=== PATIENT | male | born 1990 | race Caucasian/White ===

== ENCOUNTER 2016-11-13 21:37 | Emergency (ER) | payer SELFPAY ==
[2016-11-13 21:59] VITALS: RESP 18
[2016-11-13] MEDS ORDERED: Sodium Chloride 0.9% 1,000 ML IV STA (22:15)
[2016-11-13] MEDS ORDERED: Iohexol 240 (50 ml) PO ONE (22:15)
--- NOTE | 2016-11-13 22:20 | ED PDOC ---
HPI: Abdomen Time Seen by Provider: 11/13/16 22:05 Chief Complaint (Nursing): Abdominal Pain Chief Complaint (Provider): abdominal pain History Per: Patient History/Exam Limitations: no limitations Onset/Duration Of Symptoms: Hrs (10) Current Symptoms Are (Timing): Still Present Location Of Pain/Discomfort: RLQ Quality Of Discomfort: "Pain" Associated Symptoms: Nausea, Loss Of Appetite Additional History Per: Patient Additional Complaint(s): 26 y/o male presents with right lower abdominal pain x 10 hours. Patient states pain was improved with over the counter analgesic, then returned as of a few hours ago and has not gone away since. Associated nausea, decreased appetite. Denies fever, vomiting, chest pain, shortness of breath, palpitations , changes in bowel movements, urinary symptoms. Past Medical History Reviewed: Historical Data, Nursing Documentation, Vital Signs Vital Signs: Last Vital Signs Temp 98.8 F 11/13/16 21:57 Pulse 92 H 11/13/16 21:57 Resp 18 11/13/16 21:57 BP 145/86 11/13/16 21:57 Pulse Ox 99 11/14/16 02:42 - Medical History PMH: No Chronic Diseases - Surgical History Surgical History: No Surg Hx - Family History Family History: States: No Known Family Hx - Home Medications Home Medications: Ambulatory Orders Medication Instructions Recorded Ciprofloxacin HCl [Cipro] 500 mg PO BID #9 tab 11/14/16 Ibuprofen [Motrin Tab] 1 tab PO Q6 PRN #20 tab 11/14/16 - Allergies Allergies/Adverse Reactions: Allergies Allergy/AdvReac Type Severity Reaction Status Date / Time egg Allergy PAIN Verified 11/13/16 21:56 kiwi Allergy ANAPHYLAXIS Verified 11/13/16 21:56 anchovies Allergy PAIN Uncoded 11/13/16 21:56 Review of Systems ROS Statement: Except As Marked, All Systems Reviewed And Found Negative Gastrointestinal: Positive for: Abdominal Pain Physical Exam - Reviewed Nursing Documentation Reviewed: Yes Vital Signs Reviewed: Yes - Physical Exam Appears: Positive for: Well, Non-toxic, Uncomfortable Head Exam: Positive for: ATRAUMATIC, NORMAL INSPECTION, NORMOCEPHALIC Skin: Positive for: Normal Color Eye Exam: Positive for: Normal appearance ENT: Positive for: Normal ENT Inspection Cardiovascular/Chest: Positive for: Regular Rate, Rhythm Respiratory: Positive for: Normal Breath Sounds Gastrointestinal/Abdominal: Positive for: Bowel Sounds, Soft, Other (+obturator , +Psoa (right)). Negative for: Tenderness, Distended, Guarding, Rebound Extremity: Positive for: Normal ROM Neurologic/Psych: Positive for: Alert, Oriented - Laboratory Results Result Diagrams: 11/13/16 23:09 11/13/16 23:09 - ECG O2 Sat by Pulse Oximetry: 99 - Progress ED Course And Treament: labs, CT abd/pelvis, urine, IV fluids, IV toradol, IV zofran EXAM: CT Abdomen and Pelvis With Intravenous Contrast EXAM DATE/TIME: 11/13/2016 10:15 PM CLINICAL HISTORY: 26 years old, male; Pain; Abdominal pain; Localized; Right lower quadrant (rlq) ; Additional info: Rlq pain TECHNIQUE: Axial computed tomography images of the abdomen and pelvis with intravenous contrast. All CT scans at this facility use one or more dose reduction techniques, viz.: automated exposure control; ma/kV adjustment per patient size (including targeted exams where dose is matched to indication; i.e. head); or iterative reconstruction technique. Coronal and sagittal reformatted images were created and reviewed. CONTRAST: 90 mL of [id number] administered intravenously. COMPARISON: No relevant prior studies available. FINDINGS: Lower thorax: No acute findings. ABDOMEN: Liver: Unremarkable. No mass. Gallbladder and bile ducts: Unremarkable. No calcified stones. No ductal dilation. Pancreas: Unremarkable. No mass. No ductal dilation. Spleen: Unremarkable. No splenomegaly. Adrenals: Unremarkable. No mass. Kidneys and ureters: Moderate right hydroureteronephrosis with apparent urothelial enhancement represents either an infectious ureteritis or a recently passed calculus. Stomach and bowel: Unremarkable. No obstruction. No mucosal thickening. Appendix: No findings to suggest acute appendicitis. PELVIS: Bladder: Unremarkable. No mass. Reproductive: Unremarkable as visualized. ABDOMEN and PELVIS: Intraperitoneal space: Unremarkable. No free air. No significant fluid collection. Bones/joints: No acute fracture. No dislocation. Soft tissues: Unremarkable. Vasculature: Unremarkable. No abdominal aortic aneurysm. Lymph nodes: Unremarkable. No enlarged lymph nodes. IMPRESSION: Moderate right hydroureteronephrosis with apparent urothelial enhancement represents either an infectious ureteritis or a recently passed calculus. On re-eval, patient states he is feeling better. Patient educated on findings, likely passed stone, discharged with rx Cipro ( dose given in ED), Ibuprofen. Advised follow up urology. Return to ED for worsening/concerning symptoms. Disposition - Clinical Impression Clinical Impression: Hydroureteronephrosis, Hematuria, Kidney stone - Patient ED Disposition Is Patient to be Admitted: No Counseled Patient/Family Regarding: Studies Performed, Diagnosis, Need For Followup, Rx Given - Disposition Referrals: Maximilian Manzano MD [Medical Doctor] - Disposition: Routine/Home Disposition Time: 03:11 Condition: IMPROVED Prescriptions: Ciprofloxacin HCl [Cipro] 500 mg PO BID #9 tab Ibuprofen [Motrin Tab] 1 tab PO Q6 PRN #20 tab PRN Reason: Pain, Moderate (4-7) Instructions: Hydronephrosis (ED), Acute Hematuria (ED), Kidney Stones (ED)
[2016-11-13 23:12] LABS: BASO % 0.2 % (0.0-2.0); EOS # 0.1 K/uL (0.0-0.7); EOS % 0.8 % (0.0-4.0); HEMATOCRIT 44.9 % (35.0-51.0); LYMPH # 1.2 K/uL (1.0-4.3); LYMPH % 8.9 % (20.0-40.0); MEAN CELL VOLUME 90.4 fl (80.0-94.0); MEAN CORPUSCULAR HGB CONC 33.2 g/dL (33.0-37.0); MEAN PLATELET VOLUME 9.5 fl (7.2-11.7); MONO # 0.7 K/uL (0.0-0.8); MONO % 5.5 % (0.0-10.0); NEUT % 84.6 % (50.0-75.0); PLATELET COUNT 204 K/uL (130-400)
[2016-11-13 23:22] LABS: ALB/GLOB RATIO 1.3 (1.0-2.1); ALKALINE PHOSPHATASE 90 U/L (38-126); ALT/SGPT 23 U/L (21-72); AST/SGOT 27 U/L (17-59); BILIRUBIN,TOTAL 0.7 mg/dl (0.2-1.3); BLOOD UREA NITROGEN 18 mg/dl (9-20); CALCIUM 9.5 mg/dL (8.4-10.2); CARBON DIOXIDE 27 mmol/L (22-30); CHLORIDE 103 mmol/L (98-107); GFR AFRICAN-AMERICAN > 60; GLUCOSE,RANDOM 96 mg/dL (75-110); POTASSIUM 3.7 MMOL/L (3.6-5.0); SODIUM 138 mmol/l (132-148); TOTAL PROTEIN 7.8 G/DL (6.3-8.2)
[2016-11-13 23:23] LABS: PARTIAL THROMBOPLASTIN TIME 28.7 Seconds (25.6-37.1)
[2016-11-14 00:55] LABS: RBC URINE 324 /hpf (0-3); URINE BACTERIA RARE (<OCC); URINE BILIRUBIN NEGATIVE (NEGATIVE); URINE BLOOD LARGE (NEGATIVE); URINE COLOR YELLOW (YELLOW); URINE GLUCOSE (UA) NEG (Normal); URINE KETONE TRACE mg/dL (NEGATIVE); URINE LEUKOCYTE ESTERASE NEG Leu/uL (Negative); URINE PROTEIN 30 mg/dL (NEGATIVE); URINE UROBILINOGEN 0.2-1.0 mg/dL (0.2-1.0); WBC URINE 4 /hpf (0-5)
[2016-11-14 00:56] LABS: LARGE PLATELETS PRESENT; NEUTROPHIL 82 % (42-75); REACTIVE LYMPHOCYTES 3 % (0-0); TOTAL CELLS COUNTED 100
[2016-11-14] MEDS ORDERED: Sodium Chloride 0.9% 50 ML IV ONE (02:03)
[2016-11-14] MEDS ORDERED: Iohexol 300 100 ML IJ ONE (02:03)
[2016-11-14 04:50] VITALS: BP 129/72; PULSE 81; TEMP 98.3; O2SAT 100
--- NOTE | 2016-11-14 09:08 | CT ---
PROCEDURE: CT Abdomen and Pelvis with contrast HISTORY: rlq pain COMPARISON: None. TECHNIQUE: Contrast dose: 90 mL of Omnipaque 300. Axial and reformatted coronal and sagittal CT images of the abdomen and pelvis were obtained after IV contrast administration Radiation dose: Total exam DLP = 373.56 mGy-cm. This CT exam was performed using one or more of the following dose reduction techniques: Automated exposure control, adjustment of the mA and/or kV according to patient size, and/or use of iterative reconstruction technique. FINDINGS: LOWER THORAX: Unremarkable. LIVER: Mild hepatic steatosis is noted. GALLBLADDER AND BILE DUCTS: Unremarkable. PANCREAS: Unremarkable. No gross lesion or ductal dilatation. SPLEEN: Unremarkable. ADRENALS: Unremarkable. No mass. KIDNEYS AND URETERS: Mild right hydronephrosis and hydroureter associated with mild diffuse enhancing ureter oral wall and mild stranding surrounding the right kidney and right ureter. Findings could represent infectious process/infectious ureteritis versus recently passed calculus in the collecting system of the right kidney. There is 3 millimeter nonobstructing calculus at the upper pole of the left kidney. No evidence of left hydronephrosis or hydroureter. VASCULATURE: Unremarkable. No aortic aneurysm. BOWEL: Unremarkable. No obstruction. No gross mural thickening. APPENDIX: There is no evidence of appendicitis. PERITONEUM: Unremarkable. No free fluid. No free air. LYMPH NODES: Unremarkable. No enlarged lymph nodes. BLADDER: Mild urinary bladder wall thickening. REPRODUCTIVE: Unremarkable. BONES: No acute fracture. OTHER FINDINGS: None. IMPRESSION: Mild right hydronephrosis and hydroureter associated with mild diffuse thickening and enhancement of the right ureter and mild stranding surrounding the collecting system and right kidney. Findings may represent infectious process versus recently passed calculus in the collecting system of the right kidney. 3 millimeter nonobstructing calculus at the upper pole of the left kidney. No evidence of left hydronephrosis. Mild urinary bladder wall thickening. Preliminary report was submitted by [facility].
== END 2016-11-14 04:40 | disposition home or self-care (01) ==
LOC: H.ER 21:37
DX: N13.2 Hydronephrosis with renal and ureteral calculous obstruction (principal); N20.0 Calculus of kidney
CPT/HCPCS: 74177; 80053; 81003; 85025; 85610; 85730; 87040; 87086; 96360; 99282; J1885; J2405; J7040; Q9966; Q9967